=== PATIENT | female | born 1995 | race Asian ===

== ENCOUNTER 2022-07-10 17:46 | Emergency (ER) | payer OTHER ==
[~2022-07-10] VITALS: Ht 170.2 cm; Wt 87.1 kg
[2022-07-10 17:46] VITALS: TEMP 97
[2022-07-10 21:30] VITALS: BP 119/67
== END 2022-07-10 21:30 | disposition left against medical advice (07) ==
LOC: ED 17:46
DX: S22.42XA Multiple fractures of ribs, left side, initial encounter for closed fracture (principal); V86.55XA Driver of 3- or 4- wheeled all-terrain vehicle (ATV) injured in nontraffic accident, initial encounter; Y92.89 Other specified places as the place of occurrence of the external cause; Z53.29 Procedure and treatment not carried out because of patient's decision for other reasons
CPT/HCPCS: 96360; 96372; 96374; 96375; 99284; J1885; J2270; J2405